=== PATIENT | female | born 1985 | race Caucasian/White ===

== ENCOUNTER 2017-08-14 19:21 | Emergency (ER) | payer OTHER ==
--- NOTE | 2017-08-14 19:30 | PDOC ---
Rapid Medical Evaluation Time Seen by Provider: 08/14/17 19:26 Medical Evaluation: 08/14/17 19:29 The patient presents with a chief complaint of: rt 3rd digit with crush injury, I have performed a brief in-person evaluation of this patient. Pertinent physical exam findings: + avulsed nailbed at cuticle I have ordered the following: finger xray , tdap The patient will proceed to the ED for further evaluation. Discharge Disposition - Diagnosis Finger injury - Referrals - Patient Instructions - Post Discharge Activity
[2017-08-14] MEDS ORDERED: DIPHTH,PERTUSS(ACELL),TET 0.5 ML DISP.SYRIN IM ONE (19:32)
--- NOTE | 2017-08-14 19:36 | PDOC ---
History of Present Illness - General Chief Complaint: Laceration Stated Complaint: LACERATION Time Seen by Provider: 08/14/17 19:26 History Source: Patient - History of Present Illness Occurred: reports: this evening Upper Extremity Pain Location: right: 3rd finger Past History - Past Medical History Allergies/Adverse Reactions: Allergies Allergy/AdvReac Type Severity Reaction Status Date / Time No Known Allergies Allergy Verified 08/14/17 19:29 Home Medications: Ambulatory Orders Cephalexin [Keflex] 500 mg PO Q6H #28 capsule 08/14/17 COPD: No Thyroid Disease: Yes (Hypothyroid) - Suicide/Smoking/Psychosocial Hx Smoking History: Never smoked Have you smoked in the past 12 months: No Information on smoking cessation initiated: No Hx Alcohol Use: No Drug/Substance Use Hx: Yes (Marijuana) Substance Use Type: Marijuana Review of Systems - Review of Systems Musculoskeletal: Yes: Joint Pain, Joint Swelling *Physical Exam - Vital Signs Last Vital Signs Temp Pulse Resp BP Pulse Ox 97.8 F 99 H 20 129/109 99 08/14/17 19:30 08/14/17 19:30 08/14/17 19:30 08/14/17 19:30 08/14/17 19:30 - Physical Exam General Appearance: Yes: Appropriately Dressed HEENT: positive: Normal Voice Neck: positive: Supple Respiratory/Chest: negative: Respiratory Distress Extremity: positive: Other (partial nail avulsion to R 3rd digit) Integumentary: positive: Dry, Warm Neurologic: positive: Fully Oriented, Alert, Normal Mood/Affect Medical Decision Making - Medical Decision Making 08/14/17 19:35 32-year-old female present with crush injury to right third digit after door slammed on same tonight See exam Partial nail avulsion s/p crush injury -pain control -tetanus -nail removal -XR 08/14/17 20:43 X-ray with fracture to distal phalanx. Status post complete nail removal in ED with compression dressing and splint. Will dc with Keflex for open fracture and give hand follow-up *DC/Admit/Observation/Transfer Diagnosis at time of Disposition: Finger fracture Qualifiers: Encounter type: initial encounter Finger: middle finger Fracture type: open Phalanx: distal Fracture alignment: nondisplaced Laterality: right Qualified Code(s): S62.662B - Nondisplaced fracture of distal phalanx of right middle finger, initial encounter for open fracture - Discharge Dispostion Disposition: HOME Condition at time of disposition: Good - Prescriptions Prescriptions: Cephalexin [Keflex] 500 mg PO Q6H #28 capsule - Referrals Referrals: Eduard Purvis MD [Staff Physician] - - Patient Instructions Printed Discharge Instructions: Finger Fracture, DI for Nail Avulsion Injury Additional Instructions: Keep wound clean and dry for 2 days. Take antibiotics as directed. Follow-up with Dr. Purvis of orthopedics in 1-2 weeks - Post Discharge Activity
[2017-08-14 19:40] VITALS: BP 129/109; PULSE 99; TEMP 97.8; BMI 24.7
[2017-08-14] MEDS ORDERED: IBUPROFEN 400 MG TABLET (FP) PO ONE ×2 (19:56→19:58)
== END 2017-08-14 20:51 | disposition home or self-care (01) ==
LOC: JERFT 19:21
PROC: 0HBQXZZ Excision of Finger Nail, External Approach (ICD-10-PCS; principal; 2017-08-14)
PROC: 2W3JX1Z Immobilization of Right Finger using Splint (ICD-10-PCS; 2017-08-14)
PROC: 3E0234Z Introduction of Serum, Toxoid and Vaccine into Muscle, Percutaneous Approach (ICD-10-PCS; 2017-08-14)
DX: S67.192A Crushing injury of right middle finger, initial encounter (principal); S62.662B Nondisplaced fracture of distal phalanx of right middle finger, initial encounter for open fracture; W23.0XXA Caught, crushed, jammed, or pinched between moving objects, initial encounter; Y93.89 Activity, other specified; Y92.89 Other specified places as the place of occurrence of the external cause; Y99.8 Other external cause status
CPT/HCPCS: 73140-TC-RT; 90715; 99281-25